=== PATIENT | male | born 1950 ===

== ENCOUNTER 2025-06-06 06:17 | Day surgery (SDC) | payer MEDICARE, SELFPAY | END 2025-06-06 12:46 | disposition home or self-care (01) | LOC: GI 06:17 | PROVIDERS: ATTENDING PHYSICIAN Internal Medicine | DX: Z12.11 Encounter for screening for malignant neoplasm of colon (principal); C16.0 Malignant neoplasm of cardia; R13.10 Dysphagia, unspecified; K22.70 Barrett's esophagus without dysplasia; K22.89 Other specified disease of esophagus; K44.9 Diaphragmatic hernia without obstruction or gangrene; K29.70 Gastritis, unspecified, without bleeding; K57.30 Diverticulosis of large intestine without perforation or abscess without bleeding; Z87.19 Personal history of other diseases of the digestive system | CPT/HCPCS: 43239; G0121; 88305; 88342; 88360 ==

== ENCOUNTER 2025-06-21 06:18 | Day surgery (SDC) | payer MEDICARE, SELFPAY ==
[2025-06-21 11:50] VITALS: BMI 18.2
[2025-06-21 12:07] VITALS: BMI 18.2
[2025-06-21 12:08] VITALS: BP 164/84
[2025-06-21 14:27] VITALS: BP 123/79
[2025-06-21 14:30] VITALS: BP 134/83
[2025-06-21 14:45] VITALS: BP 119/78
[2025-06-21 15:01] VITALS: BP 135/81
== END 2025-06-21 15:20 | disposition home or self-care (01) ==
LOC: SDS 06:18
PROVIDERS: ATTENDING PHYSICIAN Internal Medicine Gastroenterology
DX: R13.10 Dysphagia, unspecified (principal); K22.89 Other specified disease of esophagus; C15.5 Malignant neoplasm of lower third of esophagus; K86.9 Disease of pancreas, unspecified; I89.9 Noninfective disorder of lymphatic vessels and lymph nodes, unspecified; K63.89 Other specified diseases of intestine
CPT/HCPCS: 43259